=== PATIENT | male | born 1970 | race Caucasian/White ===

== ENCOUNTER → 2018-05-30 | Outpatient (CLI) | payer OTHER | LOC: RAD 15:58 | DX: M54.5 Low back pain (principal) ==

== ENCOUNTER 2018-07-09 16:30 | Outpatient (RCR) | payer OTHER | END 2018-07-09 17:00 | disposition home or self-care (01) | LOC: PT 16:30 | DX: M54.5 Low back pain (principal) ==

== ENCOUNTER → 2018-08-18 | Outpatient (CLI) | payer OTHER ==
[2018-08-18 10:54] LABS: BASO # 0.1 (0.02-0.10); EOS # 0.2 (0.04-0.40); EOS % 2.7 % (0.0-4.0); HEMATOCRIT 48.8 % (42.0-52.0); HEMOGLOBIN 16.4 g/dL (13.5-18.0); LYMPH# 2.2 (1.50-4.00); MEAN CELL VOLUME 90 fl (78-100); MEAN CORPUSCULAR HEMOGLOBIN 30 pg (27-31); MEAN CORPUSCULAR HGB CONC 34 g/dL (33-37); MONO # 0.6 (0.20-0.80); NEU # 4.6 (1.40-6.50); PLATELET COUNT 260 K/mm3 (130-400); RED BLOOD COUNT 5.45 M/mm3 (4.20-5.60); RED CELL DISTRIBUTION WIDTH 13.1 % (11.5-14.5); WHITE BLOOD COUNT 7.7 K/mm3 (4.8-10.8)
[2018-08-18 11:12] LABS: ALBUMIN 4.6 g/dL (3.5-5.0); CALCIUM 9.8 mg/dL (8.4-10.2); TOTAL BILIRUBIN 1.4 mg/dL (0.2-1.3); TOTAL PROTEIN 7.8 g/dL (6.3-8.2)
[2018-08-18 13:44] LABS: POTASSIUM 4.3 mmol/L (3.6-5.0)
== END ==
LOC: LAB 10:31
PROVIDERS: Physician Assistant
DX: Z12.5 Encounter for screening for malignant neoplasm of prostate (principal); R03.0 Elevated blood-pressure reading, without diagnosis of hypertension; M54.5 Low back pain; R14.0 Abdominal distension (gaseous); Z72.0 Tobacco use

== ENCOUNTER → 2019-09-09 | Outpatient (CLI) | payer OTHER ==
[2019-09-09 09:05] LABS: BASO # 0.1 (0.02-0.10); EOS # 0.2 (0.04-0.40); EOS % 2.9 % (0.0-4.0); HEMATOCRIT 47.3 % (42.0-52.0); HEMOGLOBIN 15.8 g/dL (13.5-18.0); LYMPH# 1.8 (1.50-4.00); MEAN CELL VOLUME 93 fl (78-100); MEAN CORPUSCULAR HEMOGLOBIN 31 pg (27-31); MEAN CORPUSCULAR HGB CONC 33 g/dL (33-37); MEAN PLATELET VOLUME 10.1 fl (7.4-10.4); MONO # 0.4 (0.20-0.80); NEU # 4.5 (1.40-6.50); PLATELET COUNT 234 K/mm3 (130-400); RED BLOOD COUNT 5.11 M/mm3 (4.20-5.60); RED CELL DISTRIBUTION WIDTH 13.7 % (11.5-14.5)
[2019-09-09 09:15] LABS: POTASSIUM 4.5 mmol/L (3.5-5.1)
[2019-09-09 09:16] LABS: ALBUMIN 4.2 g/dL (3.5-5.0)
[2019-09-09 09:17] LABS: CALCIUM 9.1 mg/dL (8.3-10.5)
[2019-09-09 09:18] LABS: TOTAL PROTEIN 7.5 g/dL (6.4-8.3)
[2019-09-09 09:20] LABS: TOTAL BILIRUBIN 0.7 mg/dL (0.2-1.2)
== END ==
LOC: LAB 08:51
PROVIDERS: Physician Assistant
DX: Z00.00 Encounter for general adult medical examination without abnormal findings (principal); E78.5 Hyperlipidemia, unspecified; M72.2 Plantar fascial fibromatosis; Q18.1 Preauricular sinus and cyst; M54.5 Low back pain; R94.5 Abnormal results of liver function studies

== ENCOUNTER → 2021-09-06 | Outpatient (CLI) | payer SELFPAY ==
[2021-09-06 09:42] LABS: BASO # 0.07 K/mm3 (0.02-0.10); EOS # 0.17 K/mm3 (0.04-0.40); EOS % 1.9 % (0.0-4.0); HEMATOCRIT 46.8 % (42.0-52.0); LYMPH# 1.86 K/mm3 (1.50-4.00); MEAN CELL VOLUME 91 fl (78-100); MEAN CORPUSCULAR HEMOGLOBIN 31 pg (27-31); MEAN CORPUSCULAR HGB CONC 34 g/dL (33-37); MEAN PLATELET VOLUME 9.8 fl (7.4-10.4); NEU # 6.46 K/mm3 (1.40-6.50); PLATELET COUNT 240 K/mm3 (130-400); RED BLOOD COUNT 5.17 M/mm3 (4.20-5.60); WHITE BLOOD COUNT 9.1 K/mm3 (4.8-10.8)
[2021-09-06 09:43] LABS: ALBUMIN 4.3 g/dL (3.5-5.0)
[2021-09-06 09:44] LABS: CALCIUM 9.6 mg/dL (8.3-10.5)
[2021-09-06 09:46] LABS: TOTAL PROTEIN 7.5 g/dL (6.4-8.3)
[2021-09-06 09:47] LABS: TOTAL BILIRUBIN 1.2 mg/dL (0.2-1.2)
== END ==
LOC: LAB 08:42
PROVIDERS: Physician Assistant
DX: Z00.00 Encounter for general adult medical examination without abnormal findings (principal); Z12.5 Encounter for screening for malignant neoplasm of prostate; R68.82 Decreased libido

== ENCOUNTER → 2022-03-16 | Outpatient (CLI) | payer SELFPAY ==
[2022-03-16 09:08] LABS: ALBUMIN 4.2 g/dL (3.5-5.0); POTASSIUM 4.7 mmol/L (3.5-5.1)
[2022-03-16 09:09] LABS: CALCIUM 9.7 mg/dL (8.3-10.5)
[2022-03-16 09:10] LABS: TOTAL PROTEIN 7.2 g/dL (6.4-8.3)
[2022-03-16 09:12] LABS: TOTAL BILIRUBIN 0.8 mg/dL (0.2-1.2)
== END ==
LOC: LAB 08:42
PROVIDERS: Physician Assistant
DX: R79.89 Other specified abnormal findings of blood chemistry (principal); E78.5 Hyperlipidemia, unspecified

== ENCOUNTER → 2023-04-16 | Outpatient (CLI) | payer SELFPAY ==
[2023-04-16 08:21] LABS: BASO # 0.05 K/mm3 (0.02-0.10); EOS # 0.16 K/mm3 (0.04-0.40); EOS % 1.6 % (0.0-4.0); HEMATOCRIT 47.9 % (42.0-52.0); HEMOGLOBIN 16.1 g/dL (13.5-18.0); LYMPH# 1.82 K/mm3 (1.50-4.00); MEAN CELL VOLUME 91 fl (78-100); MEAN CORPUSCULAR HEMOGLOBIN 31 pg (27-31); MEAN CORPUSCULAR HGB CONC 34 g/dL (33-37); MEAN PLATELET VOLUME 9.5 fl (7.4-10.4); MONO # 0.45 K/mm3 (0.20-0.80); NEU # 7.45 K/mm3 (1.40-6.50); PLATELET COUNT 233 K/mm3 (130-400); RED BLOOD COUNT 5.26 M/mm3 (4.20-5.60); RED CELL DISTRIBUTION WIDTH 13.2 % (11.5-14.5); WHITE BLOOD COUNT 9.9 K/mm3 (4.8-10.8)
[2023-04-16 08:45] LABS: ALBUMIN 4.4 g/dL (3.5-5.0); POTASSIUM 4.4 mmol/L (3.5-5.1)
[2023-04-16 08:46] LABS: CALCIUM 9.8 mg/dL (8.3-10.5)
[2023-04-16 08:47] LABS: TOTAL PROTEIN 7.2 g/dL (6.4-8.3)
[2023-04-16 08:49] LABS: TOTAL BILIRUBIN 0.7 mg/dL (0.2-1.2)
== END ==
LOC: LAB 08:02
PROVIDERS: Physician Assistant
DX: Z13.29 Encounter for screening for other suspected endocrine disorder (principal); I10 Essential (primary) hypertension; E78.5 Hyperlipidemia, unspecified; R68.82 Decreased libido; R94.7 Abnormal results of other endocrine function studies; R97.20 Elevated prostate specific antigen [PSA]; R79.89 Other specified abnormal findings of blood chemistry; R53.83 Other fatigue; Z72.0 Tobacco use

== ENCOUNTER → 2024-05-05 | Outpatient (CLI) | payer SELFPAY ==
[2024-05-05 11:31] LABS: BASO # 0.03 K/mm3 (0.02-0.10); EOS # 0.11 K/mm3 (0.04-0.40); EOS % 1.6 % (0.0-4.0); HEMATOCRIT 46.9 % (42.0-52.0); HEMOGLOBIN 15.7 g/dL (13.5-18.0); MEAN CELL VOLUME 91 fl (78-100); MEAN CORPUSCULAR HEMOGLOBIN 31 pg (27-31); MEAN CORPUSCULAR HGB CONC 34 g/dL (33-37); MEAN PLATELET VOLUME 9.5 fl (7.4-10.4); MONO # 0.35 K/mm3 (0.20-0.80); NEU # 4.66 K/mm3 (1.40-6.50); PLATELET COUNT 220 K/mm3 (130-400); RED BLOOD COUNT 5.14 M/mm3 (4.20-5.60); RED CELL DISTRIBUTION WIDTH 12.9 % (11.5-14.5); WHITE BLOOD COUNT 6.9 K/mm3 (4.8-10.8)
[2024-05-05 11:38] LABS: ALBUMIN 4.5 g/dL (3.5-5.0); SODIUM 137 mmol/L (136-145)
[2024-05-05 11:40] LABS: CALCIUM 9.5 mg/dL (8.3-10.5)
[2024-05-05 11:41] LABS: GLUCOSE 101 mg/dL (75-110); TOTAL PROTEIN 7.1 g/dL (6.4-8.3)
[2024-05-05 11:42] LABS: CARBON DIOXIDE 21 mmol/L (22-29)
[2024-05-05 11:46] LABS: AST-SGOT 15 U/L (5-34)
[2024-05-05 11:47] LABS: ALT/SGPT 24 U/L (0-55)
[2024-05-05 11:54] LABS: TROPONIN-I < 0.030 ng/mL (0.00-0.033)
[2024-05-05 12:02] LABS: TOTAL BILIRUBIN 0.7 mg/dL (0.2-1.2)
[2024-05-05 12:07] LABS: D-DIMER 0.39 mg/L FEU (0.15-0.50)
== END ==
LOC: LAB 11:00
PROVIDERS: Physician Assistant
DX: R07.9 Chest pain, unspecified (principal)